=== PATIENT | male | born 1990 | race Caucasian/White ===

== ENCOUNTER 2021-12-08 11:07 | Emergency (ER) | payer MEDICAID, SELFPAY ==
[2021-12-08] VITALS (21 sets, daily range): BP systolic 152–185; BP diastolic 102–122; PULSE 72–110; RESP 0–26; O2SAT 91–98; BMI 25.8
--- NOTE | 2021-12-08 11:35 | CT_ITS ---
WS: [id number] CT LUMBAR SPINE TECHNIQUE: Noncontrast CT of the lumbar spine with coronal and sagittal reformatted images. CLINICAL INFORMATION: fall from roof COMPARISON: None. DLP: 503.[address] scans at [facility] use at least one of these dose optimization techniques: automated e xposure control; mA and/or kV adjustment per patient size (includes targeted exams where dose is matc hed to clinical indication); or iterative reconstruction. FINDINGS: Mild lumbar curve. No acute compression. No high-grade central canal stenosis. Mild disc bulging L4-L 5 and L5-S1. Vertebral body heights are well-maintained. No acute appearing compression fractures. No rmal prevertebral soft tissues. Partially visualized sacrum and pelvis appear normal. No high-grade c entral canal stenosis. Small RIGHT pericentral disc protrusion L5-S1 impinges the RIGHT S1 nerve root. Mild bilateral L5-S1 foraminal narrowing. CT/CT lumbar spine wo con* [id number] IMPRESSION: 1. No acute lumbar spine fractures 2. Small RIGHT pericentral disc protrusion L5-S1 impinges the RIGHT S1 nerve r oot. Mild bilateral L5-S1 foraminal narrowing.
--- NOTE | 2021-12-08 11:35 | CT_ITS ---
WS: [id number] CT THORACIC SPINE TECHNIQUE: Noncontrast CT of the thoracic spine with coronal and sagittal reformatted images. CLINICAL INFORMATION: fall from roof COMPARISON: None. DLP: 764.[address] scans at [facility] use at least one of these dose optimization techniques: automated e xposure control; mA and/or kV adjustment per patient size (includes targeted exams where dose is matc hed to clinical indication); or iterative reconstruction. FINDINGS: Mild thoracic curve. Vertebral body heights are well-maintained. No acute appearing compression fract ures. Spinal canal is patent. Adrenal glands are normal. Slight bibasilar atelectasis. Normal paravertebral soft tissues. No acute fractures. CT/CT thoracic spin wo con* [id number] IMPRESSION: No acute thoracic spine findings.
--- NOTE | 2021-12-08 11:35 | XRR_ITS ---
PROCEDURE INFORMATION: Exam: XR Chest Exam date and time: 12/08/2021 12:25 PM Age: 31 years old Clinical indication: Injury or trauma; Fall; Blunt trauma (contusions or hematomas); Injury details: He reports working on a roof when he tripped and fell approximately 10 feet. He landed on his back and did hit his head. He was unable to ambulate afterwards. He endorses some dizzy feeling since however did not have preceding symptoms. Intensity of discomfort mostly in his back is mild to moderate. ; Additional info: Fall from roof TECHNIQUE: Imaging protocol: Radiologic exam of the chest. Views: 1 view. COMPARISON: CT thoracic spin wo con* [id number] 12/08/2021 11:55 AM FINDINGS: Lungs: Unremarkable. No consolidation. Pleural spaces: Unremarkable. No pleural effusion. No pneumothorax. Heart/Mediastinum: Unremarkable. No cardiomegaly. Bones/joints: Unremarkable. XR/XR chest 1V portable [id number] IMPRESSION: No acute findings.
--- NOTE | 2021-12-08 11:35 | CT_ITS ---
WS: [id number] CT CERVICAL TRAUMA TECHNIQUE: Noncontrast CT of the cervical spine with coronal and sagittal reformatted images. CLINICAL INFORMATION: fall from roof COMPARISON: None. DLP: 148.[address] scans at [facility] use at least one of these dose optimization techniques: automated e xposure control; mA and/or kV adjustment per patient size (includes targeted exams where dose is matc hed to clinical indication); or iterative reconstruction. FINDINGS: LEFT parasagittal occipital nondisplaced fracture extending to the skull base. Additional r etromastoid fracture involving the LEFT occipital skull base extending into the LEFT mastoid air cell s with hemorrhagic blood products and fluid. Soft tissue edema LEFT retrooccipital soft tissues. Norm al occipital cranial articulation. Normal C1-2 articulation. Normal dens. Occipital condyles appear n ormal. No visualized cervical fractures. Cervical vertebral body heights are well-maintained. No high -grade central canal stenosis. Normal C1 ring. CT/CT cervical spin wo con* [id number] IMPRESSION: 1. No acute cervical spine fractures. 2. LEFT parasagittal occipital nondisplaced fracture extending to the skull ba se. Additional retromastoid fracture involving the LEFT occipital skull base ex tending into the LEFT mastoid air cells with hemorrhagic blood products and flu id.
--- NOTE | 2021-12-08 11:35 | CT_ITS ---
WS: [id number] CT HEAD TECHNIQUE: Noncontrast CT of the head obtained from the skullbase to the vertex. CLINICAL INFORMATION: fall from roof, L blood in EAC COMPARISON: None. DLP: 1072.[address] scans at [facility] use at least one of these dose optimization techniques: automated e xposure control; mA and/or kV adjustment per patient size (includes targeted exams where dose is matc hed to clinical indication); or iterative reconstruction. FINDINGS: Small amount of subarachnoid hemorrhage in the LEFT cerebellar hemisphere. No visualized extra-axial fluid collections. No hydrocephalus. RIGHT frontal soft tissue edema. LEFT occipital nondisplaced pericentral fracture extends to the skul l base. Additional LEFT retromastoid fracture extending into the LEFT mastoid air cells with fluid an d blood products in the LEFT mastoid air cells and EAC. Small amount of fluid in the LEFT maxillary s inus. CT/CT head wo con* [id number] IMPRESSION: 1. Small amount of subarachnoid hemorrhage in the LEFT cerebellum. No mass eff ect or significant edema. 2. LEFT nondisplaced parasagittal occipital fracture extends into the skull ba se to the foramen magnum. Additional retromastoid fracture extends into the LEF T mastoid air cells with hemorrhagic blood products and fluid in the mastoid ai r cells and LEFT EAC. 3. A few small locules intracranial air due to the skull fractures. 4. Small amount of fluid in the LEFT maxillary sinus. Notified Dillan Lopez MD at 12/08/2021 12:13 PM.
--- NOTE | 2021-12-08 11:35 | W.ED.FALL ---
HPI - Fall General: Chief Complaint: Fall Stated Complaint: fall off the roof- 10feet Time Seen by Provider: 12/08/21 11:34 History of Present Illness: Mr Andrade is a 31-year-old gentleman with history of seizure disorder (well controlled) who presents to the emergency department due to fall from roof. He reports working on a roof when he tripped and fell approximately 10 feet. He landed on his back and did hit his head. He was unable to ambulate afterwards. He endorses some dizzy feeling since however did not have preceding symptoms. Intensity of discomfort mostly in his back is mild to moderate. Symptoms are worse with movement. No other specific changes in health, exacerbating, or alleviating factors identified. Onset (ago): minute(s) Fall from: from height (distance) (Approximately 10 feet) Fall witnessed: yes, by bystander Place fall occurred: work Loss of consciousness: Unsure Prolonged down time: no Symptoms prior to fall: none Context: tripped/slipped Location of injury: head and back Severity: mild Review of Systems General: Reports: 10 or more systems reviewed and unremarkable except in HPI and below PFSH ED PFSH: Medical History (Updated 12/20/21 @ 23:54 by Dillan Lopez MD) Seizure Surgical History (Updated 12/08/21 @ 12:13 by Dillan Lopez MD) No significant past surgical history Family History (Updated 12/20/21 @ 23:27 by Dillan Lopez MD) Denies family history of Clotting disorder Bleeding disorder Physical Exam Const: COMMON NORMALS: alert GENERAL APPEARANCE: cooperative and well developed HENMT: COMMON NORMALS: normocephalic HEAD & SCALP: normocephalic THROAT: posterior oropharynx normal OTHER: No hyman signs or raccoon eyes. Contusion adjacent to and blood from left external auditory canal. No rhinorrhea. Jaw alignment normal. Dentition baseline. No obvious bony step-offs. No septal hematoma. No evidence of ocular entrapment. Eye: COMMON NORMALS: conjunctivae normal CONJUNCTIVA: Yes conjunctivae normal SCLERA: sclerae normal Neck/C-Spine: COMMON NORMALS: supple GENERAL: Yes trachea midline Resp: COMMON NORMALS: normal respiratory effort and clear to auscultation bilaterally EFFORT & INSPECTION: Yes able to speak in complete sentences AUSCULTATION: clear to auscultation bilaterally Cardio: COMMON NORMALS: regular rate and regular rhythm RATE: regular rate RHYTHM: regular rhythm GI: COMMON NORMALS: Soft to palpation PALPATION: Yes Soft to palpation and No Tenderness to palpation present (GI) PERCUSSION: normal to percussion Back/Pelvis: THORACIC SPINE/UPPER BACK: Yes thoracic spinal tenderness Extremity: GENERAL: Yes normal exam except as noted and No edema Neuro: COMMON NORMALS: moves all extremities SENSORIUM/ORIENTATION: Yes alert and No Orientation impaired Psych: COMMON NORMALS: mental status grossly normal and Normal thought process present THOUGHT PROCESS: Normal thought process present Course ED course: - Patient was seen and evaluated by me at bedside - Patient placed on cardiac monitors, IV access obtained - Initial evaluation notable for exam as above - Labs and xrays personally interpreted by me -Analgesia given - Labs notable for mild leukocytosis and hemoconcentration. Metabolic panel without acute electrolyte derangement. - Imaging notable for no pneumothorax identified on chest x-ray. CT head positive for subarachnoid hemorrhage, skull fractures, pneumocephalus. Negative neck CT for acute cervical fractures. Negative T and L-spine. - Upon serial reexamination after treatment the patient was mildly worse with regards to headache though no significant change in GCS/mental status - Based on patient history, evaluation, and testing as interpreted the most likely cause of the patient's condition is fall from roof with traumatic head injury - The results of ED evaluation were discussed with the patient including plan for transfer due to requirement for level of care not available if discharged to prevent significant worsening/deterioration. Specifically patient requires evaluation by trauma service and neurosurgery -Patient accepted by Dr. Chaiedz of the trauma service at [facility] in [place] - Patient was transferred and left the emergency department without further deterioration or significant events. Note: Click bubbles or prepopulated pacheco in note writing are used for assistance with data collection and billing and are inherently more limited than narrative and other text portions of this note. Please use narrative for additional clinical history and defer to narrative/free test for any case of contradictory information. If information appears in only free text or click bubble it should be considered present or absent as reported. Please contact note television script writer for clarifications of clinical information or contradictory information. MDM is a brief summary, contradictory or erroneous seeming information should be clarified and full note should be reviewed. Vital Signs: Vital signs: Vital Signs Pulse Rate 104 H 12/08/21 12:55 Respiratory Rate 24 H 12/08/21 12:55 Blood Pressure 155/111 12/08/21 12:55 Pulse Oximetry 92 12/08/21 12:50 Oxygen Delivery Me thod 12/08/21 11:11 MDM - Fall Medical Decision Making 31-year-old gentleman with history of seizures presenting due to fall from roof. Patient has evidence of head trauma on exam and reports back pain though no abdominal pain or chest wall pain to palpation. Patient found to have subarachnoid hemorrhage with multiple skull fractures. Transferred for neurosurgery and trauma evaluation. Medical Records I reviewed the patient's medical records. Lab Data I reviewed the patient's lab results. : 12/08/21 12:44 12/08/21 12:44 Radiology Impressions Cervical Spine CT 12/08/21 11:35 IMPRESSION: 1. No acute cervical spine fractures. 2. LEFT parasagittal occipital nondisplaced fracture extending to the skull base. Additional retromastoid fracture involving the LEFT occipital skull base extending into the LEFT mastoid air cells with hemorrhagic blood products and fluid. Chest X-Ray 12/08/21 11:35 IMPRESSION: No acute findings. Head CT 12/08/21 11:35 IMPRESSION: 1. Small amount of subarachnoid hemorrhage in the LEFT cerebellum. No mass effect or significant edema. 2. LEFT nondisplaced parasagittal occipital fracture extends into the skull base to the foramen magnum. Additional retromastoid fracture extends into the LEFT mastoid air cells with hemorrhagic blood products and fluid in the mastoid air cells and LEFT EAC. 3. A few small locules intracranial air due to the skull fractures. 4. Small amount of fluid in the LEFT maxillary sinus. Notified Dillan Lopez MD at 12/08/2021 12:[address] 12/08/21 11:35 IMPRESSION: 1. No acute lumbar spine fractures 2. Small RIGHT pericentral disc protrusion L5-S1 impinges the RIGHT S1 nerve root. Mild bilateral L5-S1 foraminal narrowing. Thoracic Spine CT 12/08/21 11:35 IMPRESSION: No acute thoracic spine findings. Laboratory Results WBC 15.3 10^3/uL (4.0-10.0) H 12/08/21 12:44 RBC 5.69 10^6/uL (4.1-5.3) H 12/08/21 12:44 Hgb 15.5 g/dL (11.7-16.6) 12/08/21 12:44 Hct 47.2 % (42.0-52.0) 12/08/21 12:44 MCV 83.0 fl (80-94) 12/08/21 12:44 MCH 27.2 pg (28.0-34.0) L 12/08/21 12:44 MCHC 32.8 g/dL (30.0-36.0) 12/08/21 12:44 RDW 12.3 % (12.1-15.1) 12/08/21 12:44 Plt Count 307 10^3/cmm (130-400) 12/08/21 12:44 MPV 10.4 fL (7.4-10.4) 12/08/21 12:44 Neut % (Auto) 68.4 % 12/08/21 12:44 Lymph % (Auto) 23.2 % 12/08/21 12:44 [place] % (Auto) 4.4 % 12/08/21 12:44 Eos % (Auto) 0.5 % 12/08/21 12:44 Baso % (Auto) 0.3 % 12/08/21 12:44 Neut # (Auto) 10.47 10^3/uL (1.8-7.7) H 12/08/21 12:44 Lymph # (Auto) 3.6 10^3/uL (0.8-4.8) 12/08/21 12:44 [place] # (Auto) 0.7 10^3/uL (0.2-0.9) 12/08/21 12:44 Eos # (Auto) 0.1 10^3/uL (0.0-0.8) 12/08/21 12:44 Baso # (Auto) 0.1 10^3/uL (0.0-0.1) 12/08/21 12:44 Nucleated RBC % (auto) 0 % 12/08/21 12:44 Nucleated RBCs # 0.0 /100WBC 12/08/21 12:44 Sodium 140 mmol/L (136-145) 12/08/21 12:44 Potassium 3.8 mmol/L (3.5-5.1) 12/08/21 12:44 Chloride 101 mmol/L (98-107) 12/08/21 12:44 Carbon Dioxide 25 mmol/L (22-29) 12/08/21 12:44 Anion Gap 17.8 (5-19) 12/08/21 12:44 BUN 15 mg/dL (6-20) 12/08/21 12:44 Creatinine 0.9 mg/dL (0.7-1.2) 12/08/21 12:44 GFR Calculation 97.2 mL/min (90-130) 12/08/21 12:44 Glucose 144 mg/dL (65-115) H 12/08/21 12:44 Calculated Osmolality 293 mOsm/kg (285-295) 12/08/21 12:44 Calcium 9.5 mg/dL (8.5-10.5) 12/08/21 12:44 Total Bilirubin 0.5 mg/dL (0.15-1.2) 12/08/21 12:44 AST 44 U/L (0-40) H 12/08/21 12:44 ALT 41 U/L (0-41) 12/08/21 12:44 Alkaline Phosphatase 106 IU/L (40-130) 12/08/21 12:44 Total Protein 8.0 g/dL (6.6-8.7) 12/08/21 12:44 Albumin 4.6 g/dL (3.5-5.2) 12/08/21 12:44 Globulin 3.4 g/dL (1.3-4.6) 12/08/21 12:44 Critical Care Time Critical Care Time: Critical Care Time: Yes Total Critical Care Time: 50 Attestation: Due to a high probability of clinically significant, possibly life threatening deterioration, the patient required my highest level of attention and preparedness to intervene emergently and I personally spent this critical care time directly and personally managing the patient. This critical care time included obtaining a history; examining the patient; pulse oximetry; ordering and review of laboratory and imaging studies; arranging urgent treatment with development of a management plan; evaluation of patient's response to treatment; frequent reassessment; and, discussions with other providers as applicable. It was exclusive of separately billable procedures. Primary mechanism involved is a trauma to the head Discharge Plan Discharge Patient Disposition: Xfer Short-Term Hosp Clinical Impression: Head injury due to trauma, Fall from roof as cause of accidental injury, Subarachnoid hemorrhage following injury, Multiple fractures of skull Condition: Serious Referrals: Cezar Briseno MD [Primary Care Provider] - Coding Level of Care Code ED Pharmacy Associate for Chg Fwd Exam Comprehensive
--- NOTE | 2021-12-08 11:37 | PC.NURSE ---
PT CHIEF COMPLAINT IS FALL FROM 10 FEET. PT STATES HE LANDED ON HIS HEAD. PT DENIES BEING KNOCKED UNCONSCIOUS BUT PT STATES HE WAS UNABLE TO WALK. PT PRESENTS WITH VISIBLE BLEEDING FROM LEFT EAR. PT STATES HIS PAIN IS A 2/10 IN HIS UPPER BACK. PT DENIES ANY NUMBNESS OR TINGLING IN HANDS AND FEET
[2021-12-08] MEDS: fentaNYL 50 mcg/mL INJ 2mL IVP (12:42)
[2021-12-08 12:55] LABS: Basophils # 0.1 10^3/uL (0.0-0.1); Basophils % 0.3 %; Eosinophils # 0.1 10^3/uL (0.0-0.8); Eosinophils % 0.5 %; Hematocrit 47.2 % (42.0-52.0); Hemoglobin 15.5 g/dL (11.7-16.6); Lymphocytes # 3.6 10^3/uL (0.8-4.8); Lymphocytes % 23.2 %; Mean Corpuscular HGB Conc 32.8 g/dL (30.0-36.0); Mean Corpuscular Hemoglobin 27.2 pg (28.0-34.0); Mean Platelet Volume 10.4 fL (7.4-10.4); Monocytes # 0.7 10^3/uL (0.2-0.9); Monocytes % 4.4 %; Neutrophils # 10.47 10^3/uL (1.8-7.7); Neutrophils % 68.4 %; Nucleated Red Blood Cells % 0 %; Platelet Count 307 10^3/cmm (130-400); Red Blood Count 5.69 10^6/uL (4.1-5.3); Red Cell Distribution Width 12.3 % (12.1-15.1); White Blood Count 15.3 10^3/uL (4.0-10.0)
[2021-12-08 13:29] LABS: Alanine Aminotransferase 41 U/L (0-41); Albumin Level 4.6 g/dL (3.5-5.2); Alkaline Phosphatase 106 IU/L (40-130); Aspartate Amino Transferase 44 U/L (0-40); Blood Urea Nitrogen 15 mg/dL (6-20); Calcium 9.5 mg/dL (8.5-10.5); Carbon Dioxide 25 mmol/L (22-29); Chloride 101 mmol/L (98-107); Globulin 3.4 g/dL (1.3-4.6); Glomerular Filtration Rate 97.2 mL/min (90-130); Glucose 144 mg/dL (65-115); Osmolality Calculated 293 mOsm/kg (285-295); Sodium 140 mmol/L (136-145); Total Bilirubin 0.5 mg/dL (0.15-1.2)
[2021-12-08 13:32] LABS: Anion Gap 17.8 (5-19); Potassium 3.8 mmol/L (3.5-5.1)
== END 2021-12-08 13:23 | disposition short-term general hospital (02) ==
PROVIDERS: Emergency Provider Emergency Medicine; PCP Family Medicine
DX: S06.6X9A Traumatic subarachnoid hemorrhage with loss of consciousness of unspecified duration, initial encounter (principal); S09.8XXA Other specified injuries of head, initial encounter; S02.11HA Other fracture of occiput, left side, initial encounter for closed fracture; S02.19XA Other fracture of base of skull, initial encounter for closed fracture; S02.82XA Fracture of other specified skull and facial bones, left side, initial encounter for closed fracture; W13.2XXA Fall from, out of or through roof, initial encounter
CPT/HCPCS: 70450; 71045; 72125; 72128; 72131; 80053; 85025; 96374; 99285; J3010